=== PATIENT | female | born 1995 | race Caucasian/White ===

== ENCOUNTER 2017-05-20 06:14 | Emergency (ER) | payer OTHER ==
[~2017-05-20] VITALS: Ht 160 cm; Wt 83.0 kg
--- NOTE | 2017-05-20 06:14 | NUR ---
DANIEL SANCHEZ TO CHAIR E
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
[2017-05-20 06:17] VITALS: BP 165/82
[2017-05-20 06:25] VITALS: BP 155/72
--- NOTE | 2017-05-20 06:25 | NUR ---
Patient discharged with v/s stable. Written and verbal after care instructions given and explained. Patient alert, oriented and verbalized understanding of instructions. Police with steady gait. All questions addressed prior to discharge. ID band removed. Patient advised to follow up with PMD.NO Rx given. Patient educated on indication of medication including possible reaction and side effects. Opportunity to ask questions provided and answered.
== END 2017-05-20 06:25 ==
LOC: MED 06:14
DX: Z02.89 Encounter for other administrative examinations (principal)
CPT/HCPCS: 99283